=== PATIENT | female | born 1950 | race Caucasian/White ===

== ENCOUNTER 2018-01-27 21:41 | Inpatient (IN) | payer OTHER ==
[~2018-01-27] VITALS: Ht 165.1 cm; Wt 117.9 kg
[~2018-01-27 21:41] MED LIST: LEXAPRO20 MG PO; LO-DOSE ASPIRIN81 M1 PO; LOPRESSOR50 MG PO; MIRAPEX1 MG PO; MULTIPLE VITAM1 EAC1 PO; PACERONE200 MG PO; ZOCOR40 MG PO
[2018-01-28 12:26] VITALS: BP 129/62
[2018-01-28] MEDS ORDERED: LOVENOX40 MG/0.4 SC (17:47)
[2018-01-28 19:38] VITALS: BP 132/62
[2018-01-28 23:20] VITALS: BP 115/55
[2018-01-29 04:03] VITALS: BP 119/56
[2018-01-29 06:45] LABS: HEMATOCRIT 39.8 % (36.0-46.0); HEMOGLOBIN 12.6 G/DL (11.9-15.5); MCHC 31.7 G/DL (30.0-36.0); MCV 91.5 FL (83-99); PLATELET COUNT 272 K/uL (156-360); RBC DIS.WIDTH-CV 13.3 % (11.8-14.6); RBC DIS.WIDTH-SD 44.7 % (39-53); RED BLOOD COUNT 4.35 M/uL (3.80-5.20); WHITE BLOOD COUNT 7.2 K/uL (4.1-10.2)
[2018-01-29 07:07] LABS: CHLORIDE 103 MEQ/L (99-109); CREATININE 0.7 MG/DL (0.6-1.3); GFR ESTIMATE (CALCULATED) > 59 mL/min/; GLUCOSE 113 mg/dL (70-99); SODIUM 141 MEQ/L (136-147); UREA NITROGEN (BUN) 20 mg/dL (9-23)
[2018-01-29 07:48] VITALS: BP 104/55
[2018-01-29 11:46] VITALS: BP 118/58
[2018-01-29 15:24] VITALS: BP 106/59
[2018-01-29] MEDS ORDERED: COLACE100 MG PO (16:48)
[2018-01-29] MEDS ORDERED: DILAUDID4 MG PO (16:48)
[2018-01-29] MEDS ORDERED: ZOFRAN ODT8 MG PO (16:49)
[2018-01-29] MEDS ORDERED: PRILOSEC20 MG PO (16:49)
== END 2018-01-29 18:13 | disposition home or self-care (01) | DRG 621 ==
LOC: ENRESERV 21:41 → 2SOUTH 01-28 05:44 → ENRESERV 01-28 13:36 → 2EAST 01-28 19:03 → EDPENDDISDT 01-29 16:55 → ENPENDDIS 01-29 16:55 → EDPENDDISTM 01-29 16:55 → 2EAST 01-29 18:13
PROVIDERS: Surgery
DX: E66.01 Morbid (severe) obesity due to excess calories (principal); E78.5 Hyperlipidemia, unspecified; I48.91 Unspecified atrial fibrillation; I10 Essential (primary) hypertension; K44.9 Diaphragmatic hernia without obstruction or gangrene; Z68.41 Body mass index [BMI] 40.0-44.9, adult; F32.9 Major depressive disorder, single episode, unspecified; F41.9 Anxiety disorder, unspecified; M19.90 Unspecified osteoarthritis, unspecified site; Z96.659 Presence of unspecified artificial knee joint; Z90.49 Acquired absence of other specified parts of digestive tract; Z79.899 Other long term (current) drug therapy; Z79.82 Long term (current) use of aspirin; Z79.01 Long term (current) use of anticoagulants
CPT/HCPCS: 80048; 85027; 86850; 86900; 86901; 88300; 94760; 94799; C9113; J0131; J0330; J1100; J1170; J1644; J2405; J2710; J3010; J3480; J7643; S0074